=== PATIENT | female | born 1990 | race Caucasian/White ===

== ENCOUNTER → 2023-10-21 | Outpatient (CLI) | payer BC ==
--- NOTE | 2023-10-21 09:24 | US ---
EXAMINATION TYPE: US thyroid st tissue head/neck DATE OF EXAM: 10/21/2023 COMPARISON: NONE CLINICAL INDICATION: Female, 32 years old with history of E04.1 THYROID NODULE; Patient states having a history of thyroid nodule. No previous here. Not on thyroid meds. GLAND SIZE: Right Lobe: 4.7 x 1.7 x 1.2 cm Overall Parenchyma: homogeneous Left Lobe: 4.4 x 1.5 x 1.2 cm Overall Parenchyma: homogeneous Isthmus Thickness: 0.2 cm NODULES RIGHT: # of nodules measured on right: 0 LEFT: # of nodules measured on left: 1 1. 1.0 X 0.8 x 0.4 cm, mid medial, solid or almost completely solid, hypoechoic nodule, which is wi brenda than tall, with smooth margins, without echogenic foci. TR 4 nodule. Prior size: No prior ISTHMUS: # of nodules measured in the isthmus: 0 Bilateral neck scanned, no evidence of lymphadenopathy. IMPRESSION: 1. There is a 1 cm TR 4 nodule left lobe thyroid for which continued follow-up is suggested according to ACR guidelines. 2017 ACR TI-RADS LEVEL: TR-RADS 4 - Moderately Suspicious: Follow if > 1 cm, FNA if > 1.5 cm *Highest TI-RADS level nodule reported
--- NOTE | 2023-10-21 20:49 | XR ---
EXAMINATION TYPE: XR chest 2V DATE OF EXAM: 10/21/2023 COMPARISON: None HISTORY: 32-year-old female R05.9, cough TECHNIQUE: Frontal and lateral views FINDINGS: Heart upper limits of normal in size. Aorta and pulmonary vasculature within normal limits. No consol idation or pleural effusion. IMPRESSION: There may be borderline cardiomegaly. Clinically correlate as to the need for further evaluation such as with cardiac echo. Otherwise, no acute process seen.
== END | disposition home or self-care (01) ==
LOC: RADUSWWP 07:04
PROVIDERS: ATTEND Internal Medicine
DX: E04.1 Nontoxic single thyroid nodule (principal); R05.9 Cough, unspecified
CPT/HCPCS: 71046; 76536

== ENCOUNTER 2024-01-11 12:19 | Day surgery (SDC) | payer BC ==
[2024-01-11 12:49] VITALS: TEMP 98.3
[2024-01-11] MEDS: IV FLUID CONTINUATION 500 ML IV ONE (12:49)
[2024-01-11] MEDS ORDERED: fentaNYL (PF) 50 MCG/ML 2 ML AMP ONE (12:58)
[2024-01-11] MEDS: fentaNYL (PF) 50 MCG/ML 2 ML AMP IVP ONE ×3 (13:14)
[2024-01-11] MEDS: MIDAZOLAM 2 MG/2 ML VIAL IVP ONE ×3 (13:14→13:16)
[2024-01-11 13:26] VITALS: RESP 16
--- NOTE | 2024-01-11 13:44 | P.TEE ---
Indications for Procedure(s): Procedure performed: 1. Transesophageal Echocardiogram with color flow doppler, pulsed wave doppler and continuous wave doppler 2. Moderate conscious sedation. Sedation time 15 mins. 3. Bubble Study Indications: Systolic murmur, concerns of bicuspid aortic valve Consent: I have discussed the risks, benefits and alternative therapies for the above-mentioned procedure. The patient has indicated understanding and acceptance of the risks of the procedure. Signed consent was obtained and was placed in the paper chart. Procedural Steps: Timeout was performed in usual fashion. Patient's heart rate, blood pressure, oxygen saturation and ECG were monitored. Benzocaine was sprayed liberally in the back of the throat. Bite block was placed between the jaw. 4 mg of Versed and 75 mcg of Fentanyl were administered intravenously. After achieving appropriate moderate conscious sedation, PAO probe was advanced without difficulty and without any immediate complications to the esophagus. PAO study was performed with color flow doppler, pulsed wave doppler and continuous wave doppler. The probe was then removed. Patient tolerated the procedure well. Patient was transferred to the post procedure area in stable and satisfactory condition. Throughout the procedure patient's heart rate, blood pressure, oxygen saturation and ECG were monitored. Total sedation time 15 mins. Complications: none FINDINGS Left Atrium: Normal Left atrial size. No evidence of mass or thrombus seen. Normal flow in pulmonic vein with preserved S/D ratio. Left Atrial Appendage: No evidence of thrombus or mass seen in YADIRA. Inter atrial septum: Intact inter-atrial septum with no evidence of atrial septal defect or patent foramen ovale. No evidence of [id number] intracardiac shunting on bubble study Left Ventricle: Normal global LV size and systolic function Right Atrium: Normal overall RA size Right Ventricle: Normal global RV size and systolic function Aortic Valve: Bicuspid aortic valve with fused left and right coronary cusp. 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 Mild to Moderate aortic regurgitation which is highly eccentric. Late peaking Doppler profile with evidence of mild aortic stenosis, mean gradient 12 mmHg. Mitral Valve: Struturally normal. No evidence of prolapse. No evidence of stenos is or regurgitation on doppler assessment Pulmonic Valve: Not well visualized. Tricuspid Valve: Structurally normal. Ascending aorta, Aortic root and Aortic arch: Normal size aortic root and sinotubular junction. Dilated ascending aorta measured at 4.3 cm. Descending aorta: No significant diastolic flow or increased systolic flow velocities. No pericardial effusion CONCLUSION: Bicuspid aortic valve with fused left and right coronary cusp with moderate calcific degeneration Mild to moderate highly eccentric aortic regurgitation Mild aortic stenosis Dilated ascending aorta measuring at 4.3 cm Andrew Fitzgerald MD, RPVI, FACC Thank you for allowing [facility] to participate in this patient's care. Feel free to reach out in case of any followup questions.
[2024-01-11 14:38] VITALS: BP 98/56; PULSE 58
== END 2024-01-11 14:39 | disposition home or self-care (01) ==
LOC: CATHCVL 12:19
PROVIDERS: ATTEND Student in an Organized Health Care Education/Training Program
DX: I35.0 Nonrheumatic aortic (valve) stenosis (principal); Z79.899 Other long term (current) drug therapy
CPT/HCPCS: 93312; 93320; 93325; 99152; 81025; J2250; J3010

== ENCOUNTER → 2024-05-18 | Outpatient (CLI) | payer BC ==
--- NOTE | 2024-05-18 08:48 | US ---
EXAMINATION TYPE: US thyroid st tissue head/neck DATE OF EXAM: 05/18/2024 COMPARISON: US 10/21/2023 CLINICAL INDICATION: Female, 33 years old with history of E04.1 Thyroid nodule; Nodule, hx FNA. TECHNIQUE: Grayscale and color Doppler imaging of the thyroid gland. FINDINGS: GLAND SIZE: Right Lobe: 4.5 x 1.8 x 1.6 cm Overall Parenchyma: homogeneous Left Lobe: 4.6 x 1.5 x 1.1 cm Overall Parenchyma: homogeneous Isthmus Thickness: 0.21 cm NODULES RIGHT: # of nodules measured on right: 0 LEFT: # of nodules measured on left: 1 1. 0.9 X 1.0 x 0.4 cm, mid medial, Prior size: 1.0 x 0.8 x 0.4 cm TIRADS Score: 4 TIRADS Category 4: Composition: Solid or almost completely solid (2 points). Echogenicity: Hypoechoic (2 points). Shape: Wider than tall (0 points). Margin: Smooth (0 points). Echogenic foci: None or large comet-tail artifacts (0 points) Recommendation: If >1.5cm: FNA; If >1cm: Follow up at 1,2, 3,5 years ISTHMUS: # of nodules measured in the isthmus: 0 Bilateral neck scanned, no evidence of lymphadenopathy. IMPRESSION: Left TI-RADS 4 nodular meet criteria for follow-up in one year. [facility], , 05/18/2024 8:36 AM
== END | disposition home or self-care (01) ==
LOC: RADUSWWP 07:28
PROVIDERS: ATTEND Internal Medicine
DX: E04.1 Nontoxic single thyroid nodule (principal); R22.0 Localized swelling, mass and lump, head
CPT/HCPCS: 76536